=== PATIENT | male | born 1945 | race Caucasian/White ===

== ENCOUNTER 2019-02-16 14:52 | Emergency (ER) | payer MEDICARE ==
[~2019-02-16 14:52] MED LIST: ISOVUE-370 76%-LOCM 1 ML ONE
[2019-02-16 15:32] LABS: #Basophils 0.1 thou/uL (0.0-0.2); #Eosinphils 0.2 thou/uL (0.0-0.7); #Lymphocytes 1.9 thou/uL (1.20-3.40); #Monocytes 0.6 thou/uL (0.11-0.59); #Neutrophils 3.5 thou/uL (1.40-6.50); %Basophils 0.8 % (0.0-1.0); %Eosinophils 2.9 % (0.0-10.0); %Lymphocytes 30.4 % (21.0-51.0); %Monocytes 8.9 % (0.0-10.0); Hemoglobin 12.7 g/dL (14.0-18.0); Mean Corpuscular HGB CONC 34.2 g/dL (32.0-36.0); Mean Corpuscular Hemoglobin 33.1 pg (27.0-31.0); Mean Corpuscular Volume 96.7 fL (78.0-98.0); Mean Platelet Volume 7.6 fL (7.4-10.4); Platelet Count 162 thou/uL (130-400); RBC Distribution Width 11.8 % (11.5-14.5); Red Blood Cell (RBC) Count 3.84 mill/uL (4.70-6.10); White Blood Cell (WBC) Count 6.2 thou/uL (4.8-10.8)
[2019-02-16 15:59] LABS: ALT (SGPT) 17 U/L (8-55); AST (SGOT) 16 U/L (5-34); Albumin 3.6 g/dL (3.4-4.8); Alkaline Phosphatase 65 U/L (40-150); Anion Gap 10 mmol/L (10-20); BUN (Urea Nitrogen) 19 mg/dL (8.4-25.7); Bilirubin, Total 0.9 mg/dL (0.2-1.2); Calc. Creatinine Clearance 0 mL/min (70-130); Calcium 8.8 mg/dL (7.8-10.44); Carbon Dioxide 24 mmol/L (23-31); Chloride 110 mmol/L (98-107); Estimated GFR-MDRD 54; Globulin 2.4 g/dL (2.4-3.5); Glucose 125 mg/dL (83-110); Lipase 20 U/L (8-78); Potassium 4.2 mmol/L (3.5-5.1); Sodium 140 mmol/L (136-145)
--- NOTE | 2019-02-16 17:00 | CT ---
CT arteriogram chest with IV contrast and 3-D imaging CT arteriogram abdomen with IV contrast and 3-D imaging HISTORY: Chest and back pain. Possible dissection. FINDINGS: There is good contrast opacification of the aorta with normal branching of the great vessel s at the aortic arch. Lumen is patent. Scattered calcification. Calcification in the coronary arteries. Visceral arteries are patent. There are at least 2 right and 2 left dominant renal arteries. No filli ng defects within the aorta. Nonspecific lymph nodes throughout the mediastinum. Scattered areas of nonspecific scarring and atele ctasis involve each lung. Gallbladder surgically absent. Protruding through the posterior right hemidiaphragm is a portion of t he right liver lobe measuring up to 4.1 cm greatest diameter on the sagittal images. The neck of the hernia is 4.4 cm width on the axial images. Degenerative changes lumbar spine. No evidence of bow el obstruction. The pelvis was not imaged. IMPRESSION: No CT evidence of aortic dissection. Atherosclerosis. Right posterior hemidiaphragm hernia containing a portion of the right liver dome.
[2019-02-16 18:56] LABS: Bilirubin Negative (Negative); Blood, Urine Negative (Negative); Clarity Clear (Clear); Glucose, Urine (Dipstick) Normal (Negative); Leukocyte Negative Leu/uL (Negative); Nitrite Negative (Negative); Protein, Urine (Dipstick) Negative (Neg-Trace); Urobilinogen Normal mg/dL (Less than 2)
== END 2019-02-16 18:19 | disposition home or self-care (01) ==
LOC: ERS 14:52
DX: R55 Syncope and collapse (principal); E78.00 Pure hypercholesterolemia, unspecified; K21.9 Gastro-esophageal reflux disease without esophagitis
CPT/HCPCS: 36415; 71275; 80053; 81003; 83605; 83690; 84484; 85025; 86850; 86870; 86900; 86901; 93005; 96360; Q9966